=== PATIENT | female | born 1940 | race Caucasian/White ===

== ENCOUNTER 2023-08-31 13:38 | Outpatient (CLI) | payer MEDICARE, BC, SELFPAY | END 2023-08-31 13:39 | disposition home or self-care (01) | PROVIDERS: PCP Nurse Practitioner Family; Visit Provider Nurse Practitioner Family | DX: R63.4 Abnormal weight loss (principal); R53.83 Other fatigue | CPT/HCPCS: 80053; 81015; 84443; 85025; 85651; 86140; 87086 ==